=== PATIENT | female | born 1990 | race Caucasian/White ===

== ENCOUNTER 2017-12-31 07:59 | Emergency (ER) | payer BC ==
--- NOTE | 2017-12-31 08:33 | ER Document Report ---
ED GI/ - General Mode of Arrival: Ambulatory Information source: Patient TRAVEL OUTSIDE OF THE [place] IN LAST 30 DAYS: No <DANIEL NOLAN - Last Filed: 12/31/17 08:24> <NICKIE SARMIENTO - Last Filed: 12/31/17 12:05> - General Chief Complaint: Abdominal Pain Stated Complaint: LOW LEFT ABDOMINAL PAIN Time Seen by Provider: 12/31/17 08:14 Notes: 27-year-old female who presents to the emergency department today with complaints of left lateral abdominal wall pain. Patient states she has had this pain for x5 days now. Patient states she had associated nausea with this x1 day out of the x5. Patient states the pain transitions from a dull ache to a sharp stabbing pain and she has noticed that the pain seems to be positional. Patient complains of increased pain with twisting at the waist or flexing abdominal muscles. Patient states her last menstrual period was at the beginning of this year, has an IUD placed. Patient denies any recent lifting, twisting, or any activity within the last week that she thinks may have caused this. (DANIEL NOLAN) - Related Data Allergies/Adverse Reactions: No Known Allergies Allergy (Verified 12/31/17 07:59) Past Medical History - General Information source: Patient - Social History Smoking Status: Never Smoker Cigarette use (# per day): No Frequency of alcohol use: None Drug Abuse: None Occupation: Construction medical office scheduler Family History: Reviewed & Not Pertinent Pulmonary Medical History: Reports: Hx Asthma - Immunizations Hx Diphtheria, Pertussis, Tetanus Vaccination: Yes <DANIEL NOLAN - Last Filed: 12/31/17 08:24> Review of Systems - Review of Systems Constitutional: No symptoms reported EENT: No symptoms reported Cardiovascular: No symptoms reported Respiratory: No symptoms reported Gastrointestinal: See HPI, Nausea, Other - left lateral abdominal wall pain Genitourinary: No symptoms reported Female Genitourinary: No symptoms reported Musculoskeletal: No symptoms reported Skin: No symptoms reported Hematologic/Lymphatic: No symptoms reported Neurological/Psychological: No symptoms reported -: Yes All other systems reviewed and negative <DANIEL NOLAN - Last Filed: 12/31/17 08:24> Physical Exam <DANIEL NOLAN - Last Filed: 12/31/17 08:24> <NICKIE SARMIENTO - Last Filed: 12/31/17 12:05> - Vital signs Vitals: Temp Pulse Resp BP Pulse Ox 98.3 F 75 16 117/56 L 98 12/31/17 08:02 12/31/17 08:02 12/31/17 08:02 12/31/17 08:02 12/31/17 08:02 - Notes Notes: Physical Exam: General: Alert, appears well. HEENT: Normocephalic. Atraumatic. PERRL. Extraocular movements intact. Oropharynx clear. Neck: Supple. Non-tender. Respiratory: No respiratory distress. Clear and equal breath sounds bilaterally. Cardiovascular: Regular rate and rhythm. Abdominal: Obese. Left lateral abdominal tenderness just below the rib margin. Increasing tenderness when abdominal muscles are flexed with partial sit up. No left lower quadrant, pelvic, or right lower quadrant tenderness with palpation. No distension. Normal Bowel Sounds. Back: Non-tender. No deformity or step off. Extremities: Moves all four extremities. Upper extremities: Normal inspection. Normal ROM. Lower extremities: Normal inspection. No edema. Normal ROM. Neurological: Normal cognition. AAOx4. Normal speech. Psychological: Normal affect. Normal Mood. Skin: Warm. Dry. Normal color. (DANIEL NOLAN) Course <DANEIL NOLAN - Last Filed: 12/31/17 08:24> - Laboratory Result Diagrams: 12/31/17 08:39 12/31/17 08:39 - Diagnostic Test Radiology reviewed: Image reviewed, Reports reviewed - CT shows some stranding in the left lower abdomen from possible early diverticulitis. There is also some nodularity in the right breast. <NICKIE SARMIENTO - Last Filed: 12/31/17 12:05> - Re-evaluation Re-evalutation: 12/31/17 11:59 CT report was reviewed with the patient. She has never had an inflammatory process in her lower abdomen in the past. She does have cysts in her right breast that have been biopsied. She will follow-up with her primary care provider about this CT report. We will start her on antibiotics for possible diverticulitis and treat her for what I think is an abdominal muscle wall strain. (NICKIE SARMIENTO) - Vital Signs Vital signs: Temp Pulse Resp BP Pulse Ox 98.3 F 75 16 117/56 L 98 12/31/17 08:02 12/31/17 08:02 12/31/17 08:02 12/31/17 08:02 12/31/17 08:02 - Laboratory Laboratory results interpreted by me: 12/31/17 08:15 Urine Blood MODERATE H Ur Leukocyte Esterase SMALL H Discharge <ANDANIEL - Last Filed: 12/31/17 08:24> <NICKIE SARMIENTO - Last Filed: 12/31/17 12:05> - Discharge Clinical Impression: Abdominal pain, left lateral Condition: Stable Disposition: HOME, SELF-CARE Additional Instructions: Diverticulitis You have been diagnosed as POSSIBLY having diverticulitis. This is an inflammation of a small pouch attached to the colon, called a diverticulum. Many of these small pouches can form on the colon as you get older. They are often caused by constipation. When inflamed or infected, symptoms arise -- usually abdominal pain, constipation or diarrhea, fever, and blood in the stool. Severe diverticulitis may require hospitalization. More mild cases are usually treated with antibiotics and clear liquid diet. As you improve, a diet low in residue (one which forms little stool) is prescribed. When you are better, you should eat a high-fiber diet. Stool softeners ( like Metamucil) are usually recommended. Call the doctor or go to the hospital if there is increasing pain, vomiting , high fever, large amounts of blood passed, or if bowel movements cease. Muscle Strain: You MAY have strained a muscle in your left lateral abdominal wall. This often occurs with strenuous exertion, or during an injury that suddenly stretches the muscle. The seriousness of a strain varies. Some strains heal within days, others cause problems for months. X-rays cannot show a muscle strain. X-rays are taken only if symptoms suggest that a fracture could be present. The usual treatment of a muscle strain is rest and ice packs. Sometimes, a sling, splint, or crutches may be necessary to rest the muscle. The muscle can be used again once pain subsides. Severe strains require a special exercise and stretching program to prevent permanent stiffness and disability. Your doctor will advise you if this will be necessary. Call the doctor immediately if pain or swelling becomes severe, or if numbness or discoloration develop. Take the medications as prescribed. Rest for the next few days. Drink plenty of fluids. Try moist heat to the painful area on your lateral abdominal wall. Follow-up with a local medical doctor if not improving. Otherwise follow-up with your doctor to review the CT report description of your right breast to see if further evaluation is necessary. RETURN TO THE EMERGENCY ROOM IF ANY NEW OR WORSENING SYMPTOMS. Prescriptions: Ciprofloxacin HCl [Cipro 500 mg Tablet] 500 mg PO BID #14 tablet Metronidazole [Flagyl 500 mg Tablet] 500 mg PO TID #21 tablet Naproxen [Naprosyn 375 Mg Tablet] 500 mg PO BID #15 tablet Forms: Return to Work Scribe Attestation: 12/31/17 09:41 I personally performed the services described in the documentation, reviewed and edited the documentation which was dictated to the scribe in my presence, and it accurately records my words and actions. (NICKIE SARMIENTO) Scribe Documentation - Scribe Written by Drake:: Drake Alvarez, 12/31/2017 0836 acting as scribe for :: Mabel <DANIEL NOLAN - Last Filed: 12/31/17 08:24>
[2017-12-31 09:33] LABS: ABSOLUTE EOSINOPHILS # (AUTO) 0.1 10^3/uL (0.0-0.6); ABSOLUTE LYMPHOCYTES (AUTO) 1.9 10^3/uL (0.5-4.7); ABSOLUTE MONOCYTES (AUTO) 0.5 10^3/uL (0.1-1.4); ABSOLUTE NEUT (AUTO) 3.4 10^3/uL (1.7-8.2); BASOPHILS % (AUTO) 0.7 % (0-2); EOSINOPHILS % (AUTO) 1.1 % (0-6); HEMATOCRIT 37.6 % (36.0-47.0); HEMOGLOBIN 13.1 g/dL (12.0-15.5); LYMPHOCYTES % (AUTO) 31.8 % (13-45); MEAN CORPUSCULAR HGB CONC 34.9 g/dL (32.0-36.0); MEAN CORPUSCULAR VOLUME 83 fl (80-97); MONOCYTES % (AUTO) 7.9 % (3-13); PLATELET COUNT 322 10^3/uL (150-450); RED BLOOD COUNT 4.52 10^6/uL (3.72-5.28); RED CELL DISTRIBUTION WIDTH 13.9 % (11.5-14.0); SEGMENTED NEUTROPHILS % (AUTO) 58.5 % (42-78); TOTAL CELLS COUNTED % (AUTO) 100 %; WHITE BLOOD COUNT 5.8 10^3/uL (4.0-10.5)
[2017-12-31 09:52] LABS: APPEARANCE,URINE CLOUDY; BILIRUBIN,URINE NEGATIVE (NEGATIVE); COLOR,URINE YELLOW; GLUCOSE, URINE NEGATIVE (NEGATIVE); KETONES,URINE NEGATIVE (NEGATIVE); LEUKOCYTE ESTERASE,URINE SMALL (NEGATIVE); NITRITE,URINE NEGATIVE (NEGATIVE); PROTEIN,URINE NEGATIVE (NEGATIVE); URINE SPECIFIC GRAVITY 1.018; UROBILINOGEN,URINE NEGATIVE mg/dL (<2.0)
[2017-12-31 09:54] LABS: ALANINE AMINOTRANSFERASE 33 U/L (9-52); ALBUMIN 4.3 g/dL (3.5-5.0); ALKALINE PHOSPHATASE 50 U/L (38-126); ANION GAP 13 (5-19); ASPARTATE AMINO TRANSFERASE 33 U/L (14-36); BILIRUBIN,DIRECT 0.2 mg/dL (0.0-0.4); BILIRUBIN,TOTAL 0.6 mg/dL (0.2-1.3); BLOOD UREA NITROGEN 14 mg/dL (7-20); CALCIUM 9.4 mg/dL (8.4-10.2); CARBON DIOXIDE 23 mmol/L (22-30); CHLORIDE 107 mmol/L (98-107); GLUCOSE 100 mg/dL (75-110); POTASSIUM 4.1 mmol/L (3.6-5.0); SODIUM 142.5 mmol/L (137-145); TOTAL PROTEIN 7.5 g/dL (6.3-8.2)
--- NOTE | 2017-12-31 11:40 | RADIOLOGY REPORT (SQ) ---
EXAM DESCRIPTION: CT LTD RENAL STONE PROTOCOL ON COMPLETED DATE/TIME: 12/31/2017 10:28 am REASON FOR STUDY: Hematuria, left abdomen and flank pain COMPARISON: None. TECHNIQUE: CT scan of the abdomen and pelvis performed without intravenous or oral contrast. Images reviewed with lung, soft tissue, and bone windows. Reconstructed coronal and sagittal MPR images revi ewed. All images stored on PACS. All CT scanners at this facility use dose modulation, iterative reconstruction, and/or weight based d osing when appropriate to reduce radiation dose to as low as reasonably achievable (ALARA). [facility]: Dose Right [facility]: CareDose [facility]: Dose Right [facility]: Teradose 4D [facility]: Smart Smart Mocha RADIATION DOSE: CT Rad equipment meets quality standard of care and radiation dose reduction techniq ues were employed. CTDIvol: 17.1 mGy. DLP: 984 mGy-cm.mGy. LIMITATIONS: None. FINDINGS: LOWER CHEST: There is asymmetric nodularity in the right breast compared to the left. No p ulmonary nodules or infiltrates. NON-CONTRASTED LIVER, SPLEEN, ADRENALS: Evaluation limited by lack of IV contrast. No identified sign ificant masses. PANCREAS: No masses. No peripancreatic inflammatory changes. GALLBLADDER: No identified stones by CT criteria. No inflammatory changes to suggest cholecystitis. RIGHT KIDNEY AND URETER: No suspicious masses. Assessment limited by lack of IV contrast. No signif icant calcifications. No hydronephrosis or hydroureter. LEFT KIDNEY AND URETER: No suspicious masses. Assessment limited by lack of IV contrast. No signifi cant calcifications. No hydronephrosis or hydroureter. AORTA AND RETROPERITONEUM: No aneurysm. No retroperitoneal masses or adenopathy. BOWEL AND PERITONEAL CAVITY: There is mild stranding in the pericolonic soft tissues of the left lowe r quadrant, adjacent to the lower descending colon. No free fluid. APPENDIX: Normal. PELVIS, BLADDER, AND ABDOMINAL WALL:IUD in the uterus. No abnormal masses. No free fluid. Bladder no rmal. BONES: No significant findings. OTHER: No other significant finding. IMPRESSION: 1. MILD STRANDING IN THE PERICOLONIC SOFT TISSUES OF THE LEFT LOWER QUADRANT ADJACENT TO THE LOWER DE SCENDING COLON. THIS COULD REPRESENT EARLY INFLAMMATION SECONDARY TO DIVERTICULITIS OR COULD BE RESI DUAL SCARRING FROM PRIOR INFLAMMATION. NO OTHER SIGNIFICANT OR ACUTE PROCESS IN THE ABDOMEN OR PELVI S. 2. ASYMMETRIC NODULARITY IN THE RIGHT BREAST COMPARED TO THE LEFT. THE BREAST WERE NOT COMPLETELY IM AGED. RECOMMEND CLINICAL CORRELATION AND IF THERE HAS BEEN NO PRIOR EVALUATION, MAY CONSIDER ULTRASO UND OF THE RIGHT BREAST. COMMENT: Quality ID # [id number]: Final reports with documentation of one or more dose reduction techniques (e.g., Automated exposure control, adjustment of the mA and/or kV according to patient size, use of iterative reconstruction technique) TECHNICAL DOCUMENTATION: JOB ID: [id number] [employer]- All Rights Reserved Reading location - IP/workstation name: [email or web address]
[2017-12-31 12:22] VITALS: BP 116/65
== END 2017-12-31 12:24 | disposition home or self-care (01) ==
LOC: ER 07:59
DX: R10.32 Left lower quadrant pain (principal); R11.0 Nausea
CPT/HCPCS: 36415; 76380; 80053; 81001; 84703; 85025; 99284

== ENCOUNTER 2019-03-06 08:12 | Emergency (ER) | payer BC, MEDICAID ==
--- NOTE | 2019-03-06 09:19 | RADIOLOGY REPORT (SQ) ---
EXAM DESCRIPTION: SACRUM AND COCCYX COMPLETED DATE/TIME: 03/06/2019 9:04 am REASON FOR STUDY: bone tenderness COMPARISON: None. NUMBER OF VIEWS: Three views. TECHNIQUE: AP, lateral, and tilt views of the sacrum and coccyx. LIMITATIONS: None. FINDINGS: MINERALIZATION: Normal. BONES: No acute fracture or dislocation. No worrisome bone lesions. SOFT TISSUES: No soft tissue swelling. No foreign body. OTHER: No other significant finding. IMPRESSION: NEGATIVE STUDY OF THE SACRUM AND COCCYX. TECHNICAL DOCUMENTATION: JOB ID: [id number] [employer]- All Rights Reserved Reading location - IP/workstation name: [email or web address]
--- NOTE | 2019-03-06 09:43 | ER Document Report ---
HPI - HPI Pain Level: 2 Notes: 29-year-old female presents the emergency room for evaluation of pain to her sacrum and buttocks after she fell on her tailbone approximately 2 weeks ago. States pain is been progressive. He tried [id number] ibuprofen and Tylenol without full relief. Patient wanted to be evaluated to see if she has a sacral or coccyx fracture. Pain is 5 out of 10, throbbing achy. Denies fevers, chills, chest pain,palpitations, shortness of breath, dyspnea, nausea, vomiting, diarrhea, abdominal pain, hematuria, LH, dizziness, syncope, headaches, neck pain, weakness, bowel or bladder dysfunction, saddle anesthesia, numbness or tingling in bilateral upper or lower extremities equally, muscle paralysis, weakness in bilateral upper or lower extremities equally or rash. Past Medical History - General Information source: Patient - Social History Smoking Status: Never Smoker Family History: Reviewed & Not Pertinent Patient has suicidal ideation: No Patient has homicidal ideation: No Pulmonary Medical History: Reports: Hx Asthma Renal/ Medical History: Denies: Hx Peritoneal Dialysis - Immunizations Hx Diphtheria, Pertussis, Tetanus Vaccination: Yes Vertical Provider Document - CONSTITUTIONAL Agree With Documented VS: Yes Exam Limitations: No Limitations General Appearance: WD/WN Notes: PHYSICAL EXAMINATION: reviewed vital signs by RN GENERAL: Well-appearing, well-nourished and in no acute distress. HEAD: Atraumatic, normocephalic. EYES: Pupils equal round and reactive to light, extraocular movements intact, conjunctiva are normal. ENT: Nares patent, oropharynx clear without exudates. Moist mucous membranes. NECK: Normal range of motion, supple without lymphadenopathy LUNGS: Breath sounds clear to auscultation bilaterally and equal. No wheezes rales or rhonchi. HEART: Regular rate and rhythm without murmurs ABDOMEN: Soft, nontender, nondistended abdomen. No guarding, no rebound. No masses appreciated. Female : deferred Musculoskeletal: Normal range of motion, no pitting or edema. No cyanosis. No pain with flexion and extension. negative straight leg test bilaterally. And redness to sacrum at S1-S2 on palpation. Normal hip rotation. DTR +2 in BLE equally. Strength 5 out of 5 both distally and proximally to bilateral lower extremities normal motor and sensory function in BLE equally. Distal pulses + 2 BLE equally. Noted paraspinal tenderness near L2 and L3. Strength 5 out of 5 in bilateral lower extremities equally. no spinal tenderness. No CVA tenderness bilaterally. Femoral pulses + 2 bilaterally and equally. No abrasions, scars, lacerations, ecchymosis of any recent trauma. normal gait. NEUROLOGICAL: Cranial nerves grossly intact. Normal speech, normal gait. Normal sensory, motor exams PSYCH: Normal mood, normal affect. SKIN: Warm, Dry, normal turgor, no rashes or lesions noted. - INFECTION CONTROL TRAVEL OUTSIDE OF THE [place] IN LAST 30 DAYS: No Course - Re-evaluation Re-evalutation: 03/06/19 09:48 Vital stable no distress. Nurse's notes reviewed. X-ray of coccyx and sacrum negative for any acute fracture dislocation. Advised to apply heat 20 minutes on 20 minutes off several times a day. Follow-up with podiatrist orthopedic if symptoms become progressive. after performing a Medical Screening Examination, I estimate there is LOW risk for EXPANDING OR RUPTURED ABDOMINAL AORTIC ANEURYSM, CAUDA EQUINA SYNDROME, EPIDURAL MASS ABSCESS OR LESION(S), OSTEOMYELITIS,PERSONAL HISTORY OF CANCER, IMMUNOSUPPERSSSION, HISTORY OF IV DRUG USE, FRACTURE, CORD COMPERSSION, CANCER, RETROPERITONEAL BLEED, SPINAL EPIDURAL HEMATOMA, or HERNIATED DISK CAUSING SEVERE SPINAL STENOSIS, thus I consider the discharge disposition reasonable. I have reevaluated this patient multiple times and no significant life threatening changes are noted. The patient and I have discussed the diagnosis and risks, and we agree with discharging home and close follow-up. We also discussed returning to the Emergency Department immediately if new or worsening symptoms occur with the understanding that symptoms and presentations can change. We have discussed the symptoms which are most concerning (e.g., saddle anesthesia, urinary or bowel incontinence or retention, changing or worsening pain) that necessitate immediate return. - Vital Signs Vital signs: Temp Pulse Resp BP Pulse Ox 97.8 F 71 20 124/74 98 03/06/19 08:17 03/06/19 08:17 03/06/19 08:17 03/06/19 08:17 03/06/19 08:17 Discharge - Discharge Clinical Impression: Sacral back pain Condition: Stable Disposition: HOME, SELF-CARE Instructions: Ice Packs ([facility]) Additional Instructions: X-ray of your sacrum was negative for any acute fracture dislocation. You did contused your buttocks. Apply ice 20 minutes on 20 minutes off several times a day take naproxen as needed. Follow-up with your primary care provider if symptoms become worse Return immediately for any new or worsening symptoms. Follow up with primary care provider, call tomorrow to make followup appointment. Prescriptions: Naproxen 500 mg PO BID #10 tablet Forms: Return to Work Referrals: NEERU CHUN JR, DO [ACTIVE PROVISIONAL STAFF] - Follow up as needed DERECK YANG DO [NO LOCAL MD] - Follow up as needed
[2019-03-06 10:08] VITALS: BP 126/76
[2019-03-06] MEDS ORDERED: ASPIRIN 81 MG TABLET, CHEWABLE PO ONE (10:08)
== END 2019-03-06 10:08 | disposition home or self-care (01) ==
LOC: ER 08:12
DX: M53.3 Sacrococcygeal disorders, not elsewhere classified (principal); M54.9 Dorsalgia, unspecified
CPT/HCPCS: 72220; 99283

== ENCOUNTER 2019-08-23 18:33 | Emergency (ER) | payer OTHER, MEDICAID ==
[2019-08-23 18:41] VITALS: BP 111/69
--- NOTE | 2019-08-23 20:37 | ER Document Report ---
HPI - HPI Time Seen by Provider: 08/23/19 20:21 Context: Patient is a 29-year-old female who presents to the emergency department with a chief complaint of right knee pain. Patient states that she was at work and she had her right knee "lock up." States that she fell to the ground. Denies h itting her head. Denies any loss of consciousness. States that the lateral part of her right knee hurts. She was able to walk and continue to rest work for the day. Patient states that she has had problems with her right knee in the past. - ROS Systems Reviewed and Negative: Yes All other systems reviewed and negative - CONSTITUTIONAL Constitutional: DENIES: Fever - EENT EENT: DENIES: Sore Throat, Ear Pain - NEURO Neurology: DENIES: Headache, Weakness - CARDIOVASCULAR Cardiovascular: DENIES: Chest pain - RESPIRATORY Respiratory: DENIES: Trouble Breathing, Coughing - GASTROINTESTINAL Gastrointestinal: DENIES: Abdominal Pain, Nausea, Patient vomiting - MUSCULOSKELETAL Musculoskeletal: REPORTS: Extremity pain - Right knee. DENIES: Swelling - DERM Skin Color: Normal Skin Problems: None Past Medical History - General Information source: Patient - Social History Smoking Status: Never Smoker Family History: Reviewed & Not Pertinent Pulmonary Medical History: Reports: Hx Asthma Renal/ Medical History: Denies: Hx Peritoneal Dialysis - Immunizations Hx Diphtheria, Pertussis, Tetanus Vaccination: Yes Vertical Provider Document - CONSTITUTIONAL Agree With Documented VS: Yes Exam Limitations: No Limitations General Appearance: No Apparent Distress - INFECTION CONTROL TRAVEL OUTSIDE OF THE [place] IN LAST 30 DAYS: No - HEENT HEENT: Atraumatic, Normocephalic, PERRLA - NECK Neck: Normal Inspection - RESPIRATORY Respiratory: Breath Sounds Normal, No Respiratory Distress - CARDIOVASCULAR Cardiovascular: Regular Rate, Regular Rhythm - MUSCULOSKELETAL/EXTREMETIES Musculoskeletal/Extremeties: Tender - Right lateral knee, No Edema. negative: FROM - decreased to right knee joint, Eccymosis - NEURO Level of Consciousness: Awake, Alert, Appropriate Motor/Sensory: No Sensory Deficit - DERM Integumentary: Warm, Dry, No Rash Course - Re-evaluation Re-evalutation: 08/23/19 Knee x-ray is unremarkable. I suspect that she has strained her LCL. Capillary refill less than 3 seconds. Dorsalis pedis and posterior tibial pulses 2+. No vascular compromise noted. Instructed patient to rest, apply ice, elevate, and use crutches. Patient will follow-up with her primary care provider. Recommended physical therapy. Follow-up with orthopedics. Patient is in agreement with this plan. Follow-up precautions were given. Verbal discharge instructions were given to the patient. They verbalized understanding. They are stable for discharge. - Vital Signs Vital signs: Temp Pulse Resp BP Pulse Ox 97.7 F 86 20 111/69 98 08/23/19 18:39 08/23/19 18:39 08/23/19 18:39 08/23/19 18:39 08/23/19 18:39 Procedures - Immobilization Right Knee Pre-Proc Neuro Vasc Exam: Normal Immobilizer type: Steven wrap, Crutches, Knee immobilizer Performed by: RN Post-Proc Neuro Vasc Exam: Normal, Unchanged from pre-exam Alignment checked and good: Yes Discharge - Discharge Clinical Impression: Knee pain, right Qualifiers: Chronicity: acute Qualified Code(s): M25.561 - Pain in right knee Condition: Stable Disposition: HOME, SELF-CARE Instructions: Use of Crutches ([facility]), Ice & Elevation ([facility]), Knee Immobilizing Splint ([facility]) Additional Instructions: You were seen today in the emergency department for right knee pain. Your x-ray is normal. I suspect you have a strain to 1 of the ligaments in your knee. Please follow-up with orthopedics in regards to this visit. Follow-up with your primary care provider to see if you can get a referral for physical therapy. Wear the Steven wrap, knee lacer and use crutches to help get around. You can take ibuprofen 600 mg and acetaminophen 1000 mg every 6 hours as needed for your pain. Forms: Return to Work Referrals: RICHARD MENG, JOVITA [NURSE PRACTITIONER] - Follow up in 3-5 days SHYAM CAMPOS MD [ACTIVE PROVISIONAL STAFF] - Follow up in 1 week
--- NOTE | 2019-08-23 21:01 | RADIOLOGY REPORT (SQ) ---
EXAM DESCRIPTION: XR KNEE 4 VIEWS COMPLETED DATE/TME: 08/23/2019 20:24 CLINICAL HISTORY: 29 years, Female, right knee pain COMPARISON: None. FINDINGS: No fracture or dislocation. Soft tissues are unremarkable. IMPRESSION: No acute abnormality.
== END 2019-08-23 22:22 | disposition home or self-care (01) ==
LOC: ER 18:33
DX: M25.561 Pain in right knee (principal); W18.30XA Fall on same level, unspecified, initial encounter
CPT/HCPCS: 99283

== ENCOUNTER 2019-10-07 19:36 | Emergency (ER) | payer MEDICAID, OTHER ==
[2019-10-07 20:03] VITALS: BP 137/77
[2019-10-07] MEDS ORDERED: OXYCODONE-ACETAMINOPHEN 5-325 MG TABLET PO ONE (20:31)
--- NOTE | 2019-10-07 20:33 | ER Document Report ---
ED Medical Screen (RME) - General Chief Complaint: Hand Burn Stated Complaint: BURN TO LEFT HAND Time Seen by Provider: 10/07/19 20:30 Primary Care Provider: JAZ CRESPO MD [Primary Care Provider] - Follow up as needed Mode of Arrival: Ambulatory Information source: Patient Notes: 29-year-old female presented to ED for second-degree woodward to the left hand. She has woodward to all 5 fingers in the palm of her hand. She does have redness with blisters to all 5 fingers in the palm. She states at around 630 she picked up her family still found pain with her bare hand took her about 5 seconds to realize what she had done and dropped it. She states about 7:00 she took 800 of ibuprofen. She states is been no relief at all from the pain. She is alert oriented respirations regular nonlabored speaking in full sentences. She does have a past medical history of asthma high cholesterol anxiety and migraines. She is a former smoker and drinks every week to every month. She states her pain is a burning 5 out of 5. Will treat with Percocet in the triage area until I can get a ride room. I have greeted and performed a rapid initial assessment of this patient. A comprehensive ED assessment and evaluation of the patient, analysis of test results and completion of medical decision making process will be conducted by an additional ED providers. TRAVEL OUTSIDE OF THE [place] IN LAST 30 DAYS: No - Related Data Allergies/Adverse Reactions: No Known Allergies Allergy (Verified 10/07/19 20:25) Past Medical History Pulmonary Medical History: Reports: Hx Asthma Renal/ Medical History: Denies: Hx Peritoneal Dialysis - Immunizations Hx Diphtheria, Pertussis, Tetanus Vaccination: Yes Physical Exam - Vital signs Vitals: Temp Pulse Resp BP Pulse Ox 98.5 F 76 20 137/77 H 96 10/07/19 20:01 10/07/19 20:01 10/07/19 20:01 10/07/19 20:01 10/07/19 20:01 Course - Vital Signs Vital signs: Temp Pulse Resp BP Pulse Ox 98.5 F 76 20 137/77 H 96 10/07/19 20:01 10/07/19 20:01 10/07/19 20:01 10/07/19 20:01 10/07/19 20:01 Doctor's Discharge - Discharge Referrals: JAZ CRESPO MD [Primary Care Provider] - Follow up as needed
[2019-10-07] MEDS ORDERED: HYDROMORPHONE HCL INJ/PF 2 MG/ML AMPULE IM ONE (22:21)
--- NOTE | 2019-10-07 22:29 | ER Document Report ---
Entered by ANAHY KENT SCRIBE 10/07/19 Acting as scribe for:SHAWN LAMBERT, ED Burn/Smoke/Toxic Fumes - General Chief Complaint: Hand Burn Stated Complaint: BURN TO LEFT HAND Time Seen by Provider: 10/07/19 20:30 Primary Care Provider: JAZ CRESPO MD [Primary Care Provider] - Follow up as needed Mode of Arrival: Ambulatory Information source: Patient Notes: This 29 year old female patient presents to the ED today with complaints of burn to the left hand that occurred prior to arrival. Patient states that she accidentally picked up a hot frying ramirez and that she took 800 mg Tylenol around 1900 without relief. Tetanus is UTD within the last year. She is right hand dominant. TRAVEL OUTSIDE OF THE [place] IN LAST 30 DAYS: No - Related Data Allergies/Adverse Reactions: No Known Allergies Allergy (Verified 10/07/19 20:25) Past Medical History - General Information source: Patient, [facility] Records - Social History Smoking Status: Never Smoker Cigarette use (# per day): No Chew tobacco use (# tins/day): No Smoking Education Provided: No Frequency of alcohol use: None Drug Abuse: None Family History: Reviewed & Not Pertinent Patient has suicidal ideation: No Patient has homicidal ideation: No - Past Medical History Cardiac Medical History: Reports: Hx Hypercholesterolemia Pulmonary Medical History: Reports: Hx Asthma - Immunizations Hx Diphtheria, Pertussis, Tetanus Vaccination: Yes Review of Systems - Review of Systems Constitutional: No symptoms reported EENT: No symptoms reported Cardiovascular: No symptoms reported Respiratory: No symptoms reported Gastrointestinal: No symptoms reported Genitourinary: No symptoms reported Female Genitourinary: No symptoms reported Musculoskeletal: See HPI Skin: See HPI Hematologic/Lymphatic: No symptoms reported Neurological/Psychological: No symptoms reported -: Yes All other systems reviewed and negative Physical Exam - Vital signs Vitals: Temp Pulse Resp BP Pulse Ox 98.5 F 76 20 137/77 H 96 10/07/19 20:01 10/07/19 20:01 10/07/19 20:01 10/07/19 20:01 10/07/19 20:01 - General General appearance: Alert In distress: None - HEENT Head: Normocephalic, Atraumatic Eyes: Normal Extraocular movements intact: Yes Pupils: PERRL - Respiratory Respiratory status: No respiratory distress Chest status: Nontender Breath sounds: Normal Chest palpation: Normal - Cardiovascular Rhythm: Regular Heart sounds: Normal auscultation Murmur: No Friction rub: No Gallop: None auscultated - Abdominal Inspection: Obese Distension: No distension Bowel sounds: Normal Tenderness: Nontender - Abdomen soft Organomegaly: No organomegaly - Back Back: Normal, Nontender - Extremities General lower extremity: Normal inspection Hand: Other - 2nd degree burn, palmar surface of left hand - Neurological Neuro grossly intact: Yes Orientation: AAOx4 [place] Coma Scale Eye Opening: Spontaneous [place] Coma Scale Verbal: Oriented [place] Coma Scale Motor: Obeys Commands [place] Coma Scale Total: 15 - Psychological Associated symptoms: Normal affect, Normal mood - Skin Notes: 2nd degree burn approximately 6 cm x 2 cm noted to the base of all phalanges on the palmar surface of the left hand Course - Re-evaluation Re-evalutation: 10/07/19 22:34 MDM 29 year old female with burn to left hand - palmar aspect after grabbing a hot ramirez. Burn involves a portion of palm and all five digits. Patchy involvement of the first four digits with minor involvement of little finger. No circumfrential involvement. Total BSA <5%. Her pain is well controlled here. I do not feel she meets a criteria for burn center transfer. Pain is controlled and will have her follow up locally with number to burn center provided. - Vital Signs Vital signs: Temp Pulse Resp BP Pulse Ox 98.5 F 76 20 137/77 H 96 10/07/19 20:01 10/07/19 20:01 10/07/19 20:01 10/07/19 20:01 10/07/19 20:01 Discharge - Discharge Clinical Impression: Burn of left hand including fingers Qualifiers: Encounter type: initial encounter Burn degree: partial thickness (2nd degree) Qualified Code(s): T23.202A - Burn of second degree of left hand, unspecified site, initial encounter Condition: Stable Disposition: HOME, SELF-CARE Instructions: [place]ward ([facility]), Oral Narcotic Medication ([facility]), Pain Medication Injection ([facility]) Additional Instructions: See your doctor or the referral doctor in follow up. The referral doctor is the burn center here locally. Please return here for any problems or any concerns. Dress the woodward with neosporin and non adherent gauze. Watch closely for discharge, redness or streaking from the wounds/ blisters. The wound care clinic locally should be calling for follow up and pain medicine was sent to your local pharmacy. Prescriptions: Hydrocodone/Acetaminophen [Arley 5-325 mg Tablet] 1 tab PO TID #12 tablet Referrals: JAZ CRESPO MD [Primary Care Provider] - Follow up as needed I personally performed the services described in the documentation, reviewed and edited the documentation which was dictated to the scribe in my presence, and it accurately records my words and actions.
[2019-10-07] MEDS ORDERED: HYDROCODONE/ACETAMINOPHEN 5-325 MG (6 TAB/ER DISP) PO PRN (22:41)
[2019-10-07] MEDS ORDERED: NEOMY/BACITRAC ZN/POLY OINT 15 GM TP ONE (22:45)
== END 2019-10-07 23:33 | disposition home or self-care (01) ==
LOC: ER 19:36
DX: T23.252A Burn of second degree of left palm, initial encounter (principal); T31.0 Burns involving less than 10% of body surface; X19.XXXA Contact with other heat and hot substances, initial encounter
CPT/HCPCS: 99284; 96372; J1170; J3490